=== PATIENT | male | born 1975 | race Caucasian/White ===

== ENCOUNTER 2021-12-22 01:20 | Emergency (ER) | payer SELFPAY ==
[2021-12-22 01:49] LABS: BASOPHIL 0.4 % (0-2); EOSINOPHIL 0.1 % (0-5); HCT 46.3 % (42.0-52.0); LYMPHOCYTE 16.1 % (15-48); MCH 31.4 pg (25.0-31.0); MCHC 34.6 g/dL (32.0-36.0); MCV 90.8 fL (78.0-100.0); MONOCYTE 9.9 % (0-12); MPV 11.1 fL (6.0-9.5); NEUTROPHIL 73.1 % (41-80); NRBC 0; PLT 232 K/uL (150-400); RDW 11.9 % (11.5-14.0); WBC 15.7 K/uL (4.0-10.5)
[2021-12-22 01:58] LABS: ALBUMIN 4.5 g/dL (3.4-5.0); BILIRUBIN - TOTAL 1.7 mg/dL (0.2-1.0); BUN/CREAT RATIO (CALC) 24.3 RATIO; CREATININE 1.48 mg/dL (0.67-1.17); GLOBULIN (CALCULATION) 3.3 g/dL; POTASSIUM 4.2 mmol/L (3.5-5.1); TOTAL PROTEIN 7.8 g/dL (6.4-8.2)
== END 2021-12-22 04:41 | disposition home or self-care (01) ==
LOC: FER 01:20
PROVIDERS: Emergency Medicine
DX: E86.0 Dehydration (principal); R07.89 Other chest pain; F17.200 Nicotine dependence, unspecified, uncomplicated; Z28.310 Unvaccinated for COVID-19
CPT/HCPCS: 36415; 80053; 83880; 84484; 85025; 93005; J7030